=== PATIENT | female | born 1970 | race Caucasian/White ===

== ENCOUNTER → 2016-11-24 | Outpatient (CLI) | payer BC ==
[~2016-11-24] MED LIST: B-COTAB18 PO; BCPILLS PO; IBUP-1050 PO; LISI-461 PO; MULT-506 PO; OREGCAP PO; PRLSR20 PO; PROB1TAB16 PO; SIMV20TA5 PO
--- NOTE | 2016-11-25 07:58 | MAMMOGRAPHY REPORT ---
BILATERAL DIGITAL SCREENING MAMMOGRAM TOMOSYNTHESIS WITH CAD: 11/24/2016 TECHNIQUE: Breast tomosynthesis in addition to standard 2D mammography was performed. Current study was also evaluated with a Computer Aided Detection (CAD) system. COMPARISON: Comparison is made to exams dated: 11/23/2015 mammogram, 11/19/2014 mammogram, 11/15/2013 m ammogram, and 11/14/2012 mammogram - [facility]. BREAST COMPOSITION: The tissue of both breasts is almost entirely fatty. FINDINGS: There is a lobulated circumscribed 6 mm mass seen within the left upper outer quadrant ant eriorly, best seen on the tomosynthesis images, for which ultrasound is recommended for further evalu ation. This likely represents a cyst. The remainder of both breasts are stable compared to prior exams, without suspicious masses, calcific ations, or areas of architectural distortion noted. IMPRESSION: ACR BI-RADS CATEGORY 0: INCOMPLETE EVALUATION: NEED ADDITIONAL IMAGING EVALUATION Left upper outer quadrant breast mass, for which additional imaging evaluation is recommended. The p atient will be called to schedule an appointment. Approximately 10% of breast cancers are not detected with mammography. A negative mammographic report should not delay biopsy if a clinically suggestive mass is present. Erma Waller M.D. ah/:11/24/2016 16:35:43 Human Factors Advisor Lead: Majo MORTON(Millie)([place])([place]), [facility] letter sent: Addl Imaging 0 BI-RADS Code: ACR BI-RADS Category 0: Incomplete Evaluation: Need Additional Imaging Evaluation
== END | disposition home or self-care (01) ==
LOC: C.MAMM 07:35
PROVIDERS: ATTEND Obstetrics & Gynecology
DX: Z12.31 Encounter for screening mammogram for malignant neoplasm of breast (principal); N63 Unspecified lump in breast

== ENCOUNTER → 2016-12-07 | Outpatient (CLI) | payer BC ==
--- NOTE | 2016-12-13 12:16 | MAMMOGRAPHY REPORT ---
ULTRASOUND OF LEFT BREAST: 12/07/2016 CLINICAL HISTORY: Callback from screening mammogram for left upper outer quadrant breast mass. COMPARISON: Comparison is made to exams dated: 11/24/2016 mammogram, 11/23/2015 mammogram, 11/19/2014 m ammogram, 11/15/2013 mammogram, and 11/14/2012 mammogram - [facility]. TECHNIQUE: Real-time targeted ultrasound of the left breast was performed. FINDINGS: Real-time, high-resolution targeted ultrasound was performed of the area of the mammograph ic mass in the left breast. In the left 1:00 periareolar breast, there is an oval circumscribed anec hoic mass with a few thin internal septations, measuring 9 x 2 x 6 mm. This corresponds with the rosemarie mographic mass and is consistent with a benign cyst cluster. Incidentally noted in the left 1:30 per iareolar breast is an oval circumscribed anechoic mass which measures 3 x 2 mm and is consistent with a benign simple cyst. No suspicious solid masses were evident. IMPRESSION: ACR BI-RADS CATEGORY 2: BENIGN The mammographic mass corresponds with a benign 9 mm cyst cluster in the left 1:00 breast on ultrasou nd. There is no sonographic evidence of malignancy. A 1 year screening mammogram is recommended. The patient was verbally notified of the results. Erma Waller M.D. ah/:12/07/2016 10:01:00 [employer] Trader: Monique MORTON(Millie)(M), [facility] letter sent: Normal 1/2 BI-RADS Code: ACR BI-RADS Category 2: Benign
== END | disposition home or self-care (01) ==
LOC: C.MAMM 09:29
PROVIDERS: ATTEND Obstetrics & Gynecology
DX: N60.02 Solitary cyst of left breast (principal); R92.2 Inconclusive mammogram